=== PATIENT | male | born 1975 | race Caucasian/White ===

== ENCOUNTER → 2016-10-18 | Outpatient (REF) | payer BC | LOC: M LAB REF 09:53 | PROVIDERS: ATTEND Physician Assistant | DX: J02.9 Acute pharyngitis, unspecified (principal) ==

== ENCOUNTER → 2017-07-18 | Outpatient (REF) | payer OTHER | LOC: M LAB REF 16:11 | DX: J02.9 Acute pharyngitis, unspecified (principal) ==

== ENCOUNTER 2019-08-29 19:18 | Emergency (ER) | payer OTHER, SELFPAY ==
[~2019-08-29] VITALS: Ht 177.8 cm; Wt 94.4 kg
[2019-08-29 19:18] VITALS: BP 126/80
[2019-08-29] MEDS ORDERED: NORCO, ANEXSIA 5/325MG TABLET (HYDROcodone/ACETAMINOPHEN) PO ONE (21:00)
--- NOTE | 2019-08-30 08:05 | REP ---
Right foot four views: There is a comminuted fracture in the fifth digit proximal phalange shaft. There is no dislocation. Mineralization and joint spaces otherwise are. Impression: Fifth digit proximal phalange shaft fracture. Electronically Signed by Julio Larsen MD 08/30/2019 07:56 A
[2019-08-31] MEDS ORDERED: NORC1TAB7 PO (07:08)
== END 2019-08-29 21:34 | disposition home or self-care (01) ==
LOC: M ED 19:18
DX: S92.514A Nondisplaced fracture of proximal phalanx of right lesser toe(s), initial encounter for closed fracture (principal); W22.8XXA Striking against or struck by other objects, initial encounter; Y92.099 Unspecified place in other non-institutional residence as the place of occurrence of the external cause; Y93.89 Activity, other specified; Y99.9 Unspecified external cause status

== ENCOUNTER → 2022-05-20 | Outpatient (CLI) | payer SELFPAY ==
[~2022-05-20] MED LIST: NORC1TAB7 PO
== END ==
LOC: M RAD 16:02
PROVIDERS: ATTEND Surgery
DX: R10.31 Right lower quadrant pain (principal)

== ENCOUNTER → 2022-07-10 | Outpatient (CLI) | payer SELFPAY | LOC: M LABSMTC 11:14 | PROVIDERS: ATTEND Anesthesiology | DX: Z01.812 Encounter for preprocedural laboratory examination (principal); Z20.822 Contact with and (suspected) exposure to COVID-19 ==

== ENCOUNTER 2022-07-15 12:25 | Day surgery (SDC) | payer SELFPAY ==
[~2022-07-15] VITALS: Ht 177.8 cm; Wt 92.7 kg
[~2022-07-15 12:25] MED LIST changes: +ceFAZolin SOD 2 GM in IV 1 EA IV ONE
[2022-07-15 13:16] LABS: HEMATOCRIT 47.3 % (42.0-52.0); HEMOGLOBIN 16.2 g/dl (13.5-17.5); MEAN CORPUSCULAR HEMOGLOBIN 30.8 pg (27.0-33.0); MEAN CORPUSCULAR HGB CONC 34.2 g/dl (32.0-36.5); MEAN CORPUSCULAR VOLUME 89.9 fl (80.0-96.0); PLATELET COUNT, AUTOMATED 202 10^3/uL (150-450); RED BLOOD COUNT 5.26 10^6/uL (4.30-6.10); WHITE BLOOD COUNT 3.7 10^3/uL (4.0-10.0)
[2022-07-15] MEDS ORDERED: LR 1,000 ML IV SCH ×2 (13:25→16:45)
[2022-07-15] MEDS ORDERED: BUPIVACAINE/EPIN 0.25% 30ML VIAL As Ordered ONE (13:43)
[2022-07-15] MEDS ORDERED: ONDANSETRON 4MG 2ML VIAL As Ordered ONE (14:02)
[2022-07-15] MEDS ORDERED: LIDOCAINE 2% 100MG/5ML SDV (FOR ANES.) As Ordered ONE (14:03)
[2022-07-15] MEDS ORDERED: SUGAMMADEX SODIUM 500 MG/5 ML VIAL (BRIDION) As Ordered ONE (14:03)
[2022-07-15] MEDS ORDERED: ROCURONIUM BROMIDE 50MG/5ML VIAL As Ordered ONE (14:03)
[2022-07-15] MEDS ORDERED: propofoL 200 MG/20 ML VIAL As Ordered ONE (14:03)
[2022-07-15] MEDS ORDERED: fentaNYL 100 MCG/2 ML INJECTION As Ordered ONE ×2 (14:03→15:45)
[2022-07-15] MEDS ORDERED: MIDAZOLAM INJ 2MG/2ML VIAL As Ordered ONE (14:04)
[2022-07-15] MEDS ORDERED: ACETAMINOPHEN 1000MG 100ML IV BAG As Ordered ONE (14:11)
[2022-07-15] MEDS ORDERED: KETOROLAC 60MG 2ML VIAL As Ordered ONE (14:39)
[2022-07-15] MEDS ORDERED: METOCLOPRAMIDE INJ 10MG/2ML VIAL IV PRN (16:45)
[2022-07-15] MEDS ORDERED: ONDANSETRON 4MG 2ML VIAL IV PRN (16:45)
[2022-07-15] MEDS ORDERED: oxyCODONE 5MG TAB PO PRN (16:45)
[2022-07-15] MEDS ORDERED: fentaNYL 100 MCG/2 ML INJECTION IV PRN (16:45)
[2022-07-15] MEDS: HYDROMORPHONE HCL 0.5 MG/ 0.5 ML SYRINGE IV PRN ×2 (17:06→17:26)
[2022-07-15] MEDS ORDERED: NORCO, ANEXSIA 5/325MG TABLET (HYDROcodone/ACETAMINOPHEN) PO PRN (17:40)
[2022-07-15 18:20] VITALS: BP 126/78
== END 2022-07-15 18:29 | disposition home or self-care (01) ==
LOC: M SDC 12:25
PROVIDERS: ATTEND Surgery
DX: K40.90 Unilateral inguinal hernia, without obstruction or gangrene, not specified as recurrent (principal)
CPT/HCPCS: 36415; 49650; 85027; C1781; J1100; J2405; S2900